=== PATIENT | male | born 1970 | race Caucasian/White ===

== ENCOUNTER 2024-04-23 09:35 | Emergency (ER) | payer SELFPAY ==
[~2024-04-23] VITALS: Ht 177.8 cm; Wt 147.4 kg
[2024-04-23 09:36] VITALS: TEMP 99.3
[2024-04-23 10:18] LABS: BASOPHILS # (AUTO) 0.1 X10'3 (0-0.2); BASOPHILS % (AUTO) 0.4 % (0-1); EOSINOPHILS # (AUTO) 2.8 X10'3 (0-0.9); EOSINOPHILS % (AUTO) 20.7 % (0-6); HEMATOCRIT 45.8 % (42.0-52.0); HEMOGLOBIN 15.4 g/dl (14.0-17.9); LYMPHOCYTES # (AUTO) 1.7 X10'3 (1.1-4.8); MEAN CORPUSCULAR HEMOGLOBIN 29.1 PG (27.0-31.0); MEAN CORPUSCULAR HGB CONC 33.7 g/dL (33.0-36.5); MEAN CORPUSCULAR VOLUME 86.2 FL (78-98); MEAN PLATELET VOLUME 7.6 FL (7.4-10.4); MONOCYTES % (AUTO) 7.3 % (2-12); NEUTROPHILS # (AUTO) 7.8 X10'3 (1.8-7.7); NEUTROPHILS % (AUTO) 58.6 % (42-75); PLATELET COUNT 289 X10'3 (140-440); RED BLOOD COUNT 5.31 X10'6 (4.70-6.10); RED CELL DISTRIBUTION WIDTH 14.9 % (11.5-14.5); WHITE BLOOD COUNT 13.3 X10'3 (4.5-11.0)
[2024-04-23 10:36] LABS: ALANINE AMINOTRANSFERASE 60 U/L (12-78); ALBUMIN 3.9 G/DL (3.4-5.0); ALKALINE PHOSPHATASE 50 IU/L (46-116); ANION GAP 11 (8-16); ASPARTATE AMINO TRANSFERASE 63 U/L (10-37); BILIRUBIN,TOTAL 0.6 MG/DL (0.1-1.0); BLOOD UREA NITROGEN 12 MG/DL (7-18); BUN/CREATININE RATIO 10.9 (10.0-20.0); CALCIUM 8.9 MG/DL (8.5-10.1); CHLORIDE 97 MMOL/L (99-107); GLUCOSE 118 MG/DL (70-104); LIPASE 56 U/L (16-77); POTASSIUM 3.2 MMOL/L (3.5-5.1); SODIUM 135 MMOL/L (135-145); TOTAL CARBON DIOXIDE 27.1 MMOL/L (24-32); TOTAL PROTEIN 7.9 G/DL (6.4-8.2); eCRCL 81 ML/MIN; eGFR 70 ML/MIN
[2024-04-23 10:57] LABS: TOTAL CELLS COUNTED 100
[2024-04-23 10:58] LABS: PLATELET ESTIMATE NORMAL; SMUDGE CELLS FEW; STOMATOCYTES FEW
[2024-04-23] MEDS ORDERED: METO-467 PO (11:01)
[2024-04-23] MEDS ORDERED: ROSU40TA PO (11:02)
[2024-04-23] MEDS ORDERED: LISI-644 PO (11:04)
[2024-04-23] MEDS ORDERED: [UNRECOGNIZED DRUG - CODE] PO (11:05)
[2024-04-23] MEDS ORDERED: DICL100T85 PO (11:06)
[2024-04-23] MEDS ORDERED: ASPI81TA52 PO (11:07)
[2024-04-23] MEDS ORDERED: CHOL100025 PO (11:08)
[2024-04-23 12:30] VITALS: RESP 16
[2024-04-23 13:31] LABS: BILIRUBIN,URINE SMALL (Neg); CLARITY,URINE CLEAR (Clear); COLOR,URINE YELLOW (Yellow); GLUCOSE, URINE NEGATIVE (Neg); KETONES,URINE TRACE mg/dl (Neg); LEUKOCYTE ESTERASE ,URINE NEGATIVE (Neg); NITRITES, URINE NEGATIVE (Neg); OCCULT BLOOD,URINE NEGATIVE (Neg); PH,URINE 5.5 (4.8-8.0); PROTEIN,URINE TRACE mg/dl (Neg); UROBILINOGEN,URINE 0.2 E.U/dL (0.2-1.0)
[2024-04-23 13:42] LABS: UA COLLECTION TYPE CLN CATCH MIDSTREAM
[2024-04-23 13:45] LABS: MUCUS STRANDS MODERATE /LPF (Neg)
[2024-04-23 13:47] LABS: RBC,URINE NONE SEEN /HPF (0-2)
[2024-04-23 13:51] LABS: SQUAMOUS EPITHELIAL CELL,UR NONE SEEN /LPF (FEW)
[2024-04-23 13:53] LABS: CELLULAR CAST 0-4 /LPF (NEGATIVE)
[2024-04-23 13:57] LABS: BACTERIA,URINE FEW /HPF (Neg)
[2024-04-23 14:33] VITALS: BP 123/75; PULSE 77; O2SAT 98
[2024-04-23] MEDS: polyethylene glycol 3350 17gm powd pack PO ONE (16:13)
[2024-04-23] MEDS ORDERED: GOLYS PO (17:33)
== END 2024-04-23 17:41 | disposition home or self-care (01) ==
LOC: ER 09:35
DX: K59.00 Constipation, unspecified (principal); Z88.8 Allergy status to other drugs, medicaments and biological substances; Z79.899 Other long term (current) drug therapy; Z79.2 Long term (current) use of antibiotics
CPT/HCPCS: 74176; 80053; 81001; 83690; 85007; 85025; 87088; 99284

== ENCOUNTER 2024-08-05 19:29 | Inpatient (IN) | payer OTHER ==
[~2024-08-05] VITALS: Ht 158.8 cm; Wt 141.0 kg
[~2024-08-05 19:29] MED LIST: ASPI81TA52 PO; CHOL100025 PO; DICL100T85 PO; GOLYS PO; METO-467 PO; ROSU40TA PO; [UNRECOGNIZED DRUG - CODE] PO
[2024-08-05 20:00] LABS: BASOPHILS % (AUTO) 0.4 % (0-1); EOSINOPHILS # (AUTO) 0.2 X10'3 (0-0.9); EOSINOPHILS % (AUTO) 1.6 % (0-6); HEMATOCRIT 38.1 % (42.0-52.0); HEMOGLOBIN 12.9 g/dl (14.0-17.9); LYMPHOCYTES # (AUTO) 0.9 X10'3 (1.1-4.8); LYMPHOCYTES % (AUTO) 9.4 % (21-51); MEAN CORPUSCULAR HEMOGLOBIN 29.7 PG (27.0-31.0); MEAN CORPUSCULAR VOLUME 87.5 FL (78-98); MEAN PLATELET VOLUME 7.6 FL (7.4-10.4); MONOCYTES # (AUTO) 0.8 X10'3 (0-0.9); MONOCYTES % (AUTO) 7.8 % (2-12); NEUTROPHILS % (AUTO) 80.8 % (42-75); PLATELET COUNT 272 X10'3 (140-440); RED BLOOD COUNT 4.35 X10'6 (4.70-6.10); RED CELL DISTRIBUTION WIDTH 13.7 % (11.5-14.5)
[2024-08-05 20:10] LABS: ALANINE AMINOTRANSFERASE 43 U/L (12-78); ALBUMIN 3.8 G/DL (3.4-5.0); ALKALINE PHOSPHATASE 47 IU/L (46-116); ANION GAP 10 (8-16); ASPARTATE AMINO TRANSFERASE 51 U/L (10-37); BILIRUBIN,TOTAL 0.6 MG/DL (0.1-1.0); BLOOD UREA NITROGEN 40 MG/DL (7-18); BUN/CREATININE RATIO 13.7 (10.0-20.0); CALCIUM 8.9 MG/DL (8.5-10.1); CHLORIDE 91 MMOL/L (99-107); CREATININE 2.93 MG/DL (0.60-1.10); GLUCOSE 138 MG/DL (70-104); LIPASE 165 U/L (16-77); SODIUM 131 MMOL/L (135-145); TOTAL CARBON DIOXIDE 30.2 MMOL/L (24-32); TOTAL PROTEIN 7.6 G/DL (6.4-8.2); eCRCL 22 ML/MIN; eGFR 23 ML/MIN
[2024-08-05 20:17] LABS: POTASSIUM 2.6 MMOL/L (3.5-5.1)
[2024-08-05 21:30] LABS: MAGNESIUM 1.2 MG/DL (1.5-2.4)
[2024-08-05] MEDS: normal saline 1000ml 1,000 ML IV ONE (22:50)
[2024-08-05 23:49] LABS: BILIRUBIN,URINE NEGATIVE (Neg); CLARITY,URINE CLEAR (Clear); COLOR,URINE YELLOW (Yellow); GLUCOSE, URINE NEGATIVE (Neg); KETONES,URINE NEGATIVE (Neg); LEUKOCYTE ESTERASE ,URINE NEGATIVE (Neg); NITRITES, URINE NEGATIVE (Neg); OCCULT BLOOD,URINE SMALL (Neg); PROTEIN,URINE TRACE mg/dl (Neg); UROBILINOGEN,URINE 0.2 E.U/dL (0.2-1.0)
[2024-08-05 23:52] LABS: UA COLLECTION TYPE CLN CATCH MIDSTREAM
[2024-08-06 00:18] LABS: MUCUS STRANDS FEW /LPF (Neg); SQUAMOUS EPITHELIAL CELL,UR FEW /LPF (FEW)
[2024-08-06 00:19] LABS: AMORPHOUS URATES 3+; BACTERIA,URINE FEW /HPF (Neg); RBC,URINE 0-2 /HPF (0-2); TRANSITIONAL EPI CELLS,URINE FEW /HPF; WBC,URINE 0-4 /HPF (0-4)
[2024-08-06] MEDS ORDERED: acetaminophen 325mg tablet PO PRN (01:00)
[2024-08-06] MEDS ORDERED: potassium Cl 40MEQ/1/2NS 520ml 520 ML IV PRN (01:00)
[2024-08-06] MEDS ORDERED: ondansetron/PF 4mg/2ml inj IV PRN (01:00)
[2024-08-06] MEDS ORDERED: magnesium hydroxide 30ml (MOM) UD suspension PO PRN (01:00)
[2024-08-06] MEDS ORDERED: magnesium sulf-water 4G/100mL 100 ML IV PRN (01:00)
[2024-08-06] MEDS ORDERED: metoclopramide 5 mg/ml inj IV PRN (01:00)
[2024-08-06] MEDS ORDERED: magnesium sulf-water 2g/50mL 50 ML IV PRN (01:00)
[2024-08-06] MEDS ORDERED: mag hydrox/Alum hydrox/simeth 30ml oral suspension PO PRN (01:00)
[2024-08-06] MEDS ORDERED: magnesium Cl slow-release 64mg tablet PO PRN (01:00)
[2024-08-06] MEDS: normal saline 1000ml 1,000 ML IV ONE (01:17)
[2024-08-06] MEDS: magnesium sulf-water 4G/100mL 100 ML IV ONE (01:18)
[2024-08-06] MEDS: potassium Cl 40MEQ/1/2NS 520ml 520 ML IV SCH (01:18)
[2024-08-06] MEDS ORDERED: LORazepam 2 mg/ml vial IV PRN (01:25)
[2024-08-06] MEDS ORDERED: haloperidol 5mg tablet PO PRN (01:25)
[2024-08-06] MEDS ORDERED: haloperidol lactate 5mg/ml inj IM PRN (01:25)
[2024-08-06] MEDS ORDERED: LORazepam 1 MG tablet PO PRN (01:25)
[2024-08-06 03:12] LABS: MAGNESIUM 2.1 MG/DL (1.5-2.4); PHOSPHORUS 3.2 MG/DL (2.3-4.5)
[2024-08-06 06:00] VITALS: BP 114/52; PULSE 65; RESP 16; TEMP 97.9; O2SAT 96
[2024-08-06] MEDS: normal saline 1000ml 1,000 ML IV SCH (06:16)
[2024-08-06 07:55] VITALS: RESP 18
[2024-08-06] MEDS: multivitamins, therapeutics tablet PO SCH (08:02)
[2024-08-06] MEDS: thiamine 100mg/ml 2ml inj. IV SCH (08:04)
[2024-08-06] MEDS: heparin, porcine 5000 units/ml vial SQ SCH (08:06)
[2024-08-06] MEDS: K and/or MAG REPLACEMENT MC SCH (08:59)
[2024-08-06 09:07] LABS: BASOPHILS % (AUTO) 0.3 % (0-1); EOSINOPHILS # (AUTO) 0.2 X10'3 (0-0.9); HEMATOCRIT 35.3 % (42.0-52.0); HEMOGLOBIN 12.1 g/dl (14.0-17.9); LYMPHOCYTES % (AUTO) 11.6 % (21-51); MEAN CORPUSCULAR HEMOGLOBIN 29.7 PG (27.0-31.0); MEAN CORPUSCULAR HGB CONC 34.2 g/dL (33.0-36.5); MEAN CORPUSCULAR VOLUME 86.7 FL (78-98); MEAN PLATELET VOLUME 7.8 FL (7.4-10.4); MONOCYTES # (AUTO) 0.6 X10'3 (0-0.9); MONOCYTES % (AUTO) 7.4 % (2-12); NEUTROPHILS # (AUTO) 6.6 X10'3 (1.8-7.7); NEUTROPHILS % (AUTO) 78.7 % (42-75); PLATELET COUNT 258 X10'3 (140-440); RED BLOOD COUNT 4.07 X10'6 (4.70-6.10); RED CELL DISTRIBUTION WIDTH 13.2 % (11.5-14.5); WHITE BLOOD COUNT 8.4 X10'3 (4.5-11.0)
[2024-08-06 09:22] LABS: ALANINE AMINOTRANSFERASE 44 U/L (12-78); ALBUMIN 3.3 G/DL (3.4-5.0); ALBUMIN/GLOBULIN RATIO 0.9 (1.1-1.5); ALKALINE PHOSPHATASE 43 IU/L (46-116); ANION GAP 10 (8-16); ASPARTATE AMINO TRANSFERASE 41 U/L (10-37); BILIRUBIN,TOTAL 0.5 MG/DL (0.1-1.0); BLOOD UREA NITROGEN 34 MG/DL (7-18); CALCIUM 8.4 MG/DL (8.5-10.1); CHLORIDE 98 MMOL/L (99-107); CREATININE 2.26 MG/DL (0.60-1.10); GLUCOSE 153 MG/DL (70-104); SODIUM 136 MMOL/L (135-145); TOTAL CARBON DIOXIDE 27.8 MMOL/L (24-32); TOTAL PROTEIN 6.8 G/DL (6.4-8.2); eCRCL 29 ML/MIN; eGFR 30 ML/MIN
[2024-08-06 09:33] LABS: POTASSIUM 2.7 MMOL/L (3.5-5.1)
[2024-08-06] MEDS: potassium Cl 20 mEq SR tablet PO PRN (09:57)
[2024-08-06 18:00] VITALS: BP 115/53; PULSE 73; RESP 18; TEMP 97.7; O2SAT 96
[2024-08-06 22:00] VITALS: BP 11/53; PULSE 68; RESP 16; TEMP 98.3; O2SAT 97
[2024-08-07] VITALS (8 sets, daily range): BP systolic 116–132; BP diastolic 65–99; PULSE 56–64; RESP 14–20; TEMP 96.9–98.1; O2SAT 94–97
[2024-08-07] MEDS: potassium Cl 20 mEq SR tablet PO PRN (01:08)
[2024-08-07 07:16] LABS: BASOPHILS % (AUTO) 0.5 % (0-1); EOSINOPHILS # (AUTO) 0.3 X10'3 (0-0.9); EOSINOPHILS % (AUTO) 4.3 % (0-6); HEMATOCRIT 33.6 % (42.0-52.0); HEMOGLOBIN 11.3 g/dl (14.0-17.9); LYMPHOCYTES # (AUTO) 1.2 X10'3 (1.1-4.8); LYMPHOCYTES % (AUTO) 19.8 % (21-51); MEAN CORPUSCULAR HEMOGLOBIN 30.2 PG (27.0-31.0); MEAN CORPUSCULAR HGB CONC 33.7 g/dL (33.0-36.5); MEAN CORPUSCULAR VOLUME 89.6 FL (78-98); MEAN PLATELET VOLUME 7.9 FL (7.4-10.4); MONOCYTES # (AUTO) 0.7 X10'3 (0-0.9); MONOCYTES % (AUTO) 10.9 % (2-12); NEUTROPHILS # (AUTO) 3.9 X10'3 (1.8-7.7); NEUTROPHILS % (AUTO) 64.5 % (42-75); PLATELET COUNT 243 X10'3 (140-440); RED BLOOD COUNT 3.75 X10'6 (4.70-6.10); RED CELL DISTRIBUTION WIDTH 13.5 % (11.5-14.5)
[2024-08-07] MEDS: metoprolol tartrate 50mg tablet PO SCH (07:33)
[2024-08-07] MEDS: atorvastatin 20mg tablet PO SCH (07:38)
[2024-08-07 07:42] LABS: ALBUMIN 2.8 G/DL (3.4-5.0); ANION GAP 7 (8-16); BLOOD UREA NITROGEN 20 MG/DL (7-18); BUN/CREATININE RATIO 11.7 (10.0-20.0); CALCIUM 7.9 MG/DL (8.5-10.1); CHLORIDE 104 MMOL/L (99-107); CREATININE 1.71 MG/DL (0.60-1.10); GLUCOSE 102 MG/DL (70-104); PHOSPHORUS 1.9 MG/DL (2.3-4.5); POTASSIUM 3.3 MMOL/L (3.5-5.1); SODIUM 139 MMOL/L (135-145); TOTAL CARBON DIOXIDE 27.8 MMOL/L (24-32); eCRCL 39 ML/MIN; eGFR 42 ML/MIN
[2024-08-07 15:28] LABS: LIPASE 58 U/L (16-77)
[2024-08-08 06:00] VITALS: BP 128/75; PULSE 60; RESP 17; TEMP 98.1; O2SAT 98
[2024-08-08 07:03] LABS: BASOPHILS % (AUTO) 0.4 % (0-1); EOSINOPHILS # (AUTO) 0.3 X10'3 (0-0.9); EOSINOPHILS % (AUTO) 4.7 % (0-6); HEMATOCRIT 33.9 % (42.0-52.0); HEMOGLOBIN 11.3 g/dl (14.0-17.9); LYMPHOCYTES # (AUTO) 1.2 X10'3 (1.1-4.8); LYMPHOCYTES % (AUTO) 19.4 % (21-51); MEAN CORPUSCULAR HEMOGLOBIN 29.9 PG (27.0-31.0); MEAN CORPUSCULAR HGB CONC 33.4 g/dL (33.0-36.5); MEAN CORPUSCULAR VOLUME 89.3 FL (78-98); MEAN PLATELET VOLUME 7.8 FL (7.4-10.4); MONOCYTES # (AUTO) 0.6 X10'3 (0-0.9); MONOCYTES % (AUTO) 9.3 % (2-12); NEUTROPHILS # (AUTO) 4.2 X10'3 (1.8-7.7); NEUTROPHILS % (AUTO) 66.2 % (42-75); PLATELET COUNT 239 X10'3 (140-440); RED CELL DISTRIBUTION WIDTH 13.7 % (11.5-14.5); WHITE BLOOD COUNT 6.3 X10'3 (4.5-11.0)
[2024-08-08 07:13] LABS: ALBUMIN 2.9 G/DL (3.4-5.0); ANION GAP 9 (8-16); BLOOD UREA NITROGEN 10 MG/DL (7-18); BUN/CREATININE RATIO 7.3 (10.0-20.0); CHLORIDE 107 MMOL/L (99-107); CREATININE 1.37 MG/DL (0.60-1.10); GLUCOSE 104 MG/DL (70-104); MAGNESIUM 1.8 MG/DL (1.5-2.4); PHOSPHORUS 1.9 MG/DL (2.3-4.5); POTASSIUM 3.4 MMOL/L (3.5-5.1); SODIUM 140 MMOL/L (135-145); TOTAL CARBON DIOXIDE 24.4 MMOL/L (24-32); eCRCL 49 ML/MIN; eGFR 54 ML/MIN
[2024-08-08 08:00] VITALS: RESP 17; O2SAT 98
[2024-08-08 10:00] VITALS: BP_SYST 122; BP_SYST 128; BP_DIAS 62; BP_DIAS 75; PULSE 57; PULSE 60; RESP 16; RESP 17; TEMP 97.3; TEMP 98.1; O2SAT 96; O2SAT 98
[2024-08-08] MEDS ORDERED: POTA-207 PO (12:14)
[2024-08-09] MEDS ORDERED: thiamine 100mg tablet PO SCH (08:00)
[2024-08-10] MEDS ORDERED: folic acid 1mg tablet PO SCH (08:00)
== END 2024-08-08 14:15 | disposition home or self-care (01) | DRG 438 ==
LOC: ER 19:29 → ED HOLD 08-06 01:03 → ORTHO 4S 08-06 03:10
PROVIDERS: ADMIT Internal Medicine Pulmonary Disease; ATTEND Internal Medicine
DX: K85.20 Alcohol induced acute pancreatitis without necrosis or infection (principal); N17.0 Acute kidney failure with tubular necrosis; K56.7 Ileus, unspecified; Z68.43 Body mass index [BMI] 50.0-59.9, adult; E66.01 Morbid (severe) obesity due to excess calories; K59.09 Other constipation; E86.0 Dehydration; E87.6 Hypokalemia; E78.5 Hyperlipidemia, unspecified; I10 Essential (primary) hypertension; F10.10 Alcohol abuse, uncomplicated; G47.33 Obstructive sleep apnea (adult) (pediatric); Z88.5 Allergy status to narcotic agent; Z79.82 Long term (current) use of aspirin; Z79.899 Other long term (current) drug therapy
CPT/HCPCS: 36415; 74176; 80048; 80053; 81001; 83690; 83735; 84100; 84132; 84145; 85025; 87081; 94760; 96360; 99285; A6258; G0378; J1644; J3411; J3475; J3480; J7030

== ENCOUNTER 2025-03-16 07:36 | Day surgery (SDC) | payer OTHER ==
--- NOTE | 2025-03-10 15:00 | ELECTROCARDIOGRAPH REPORT ---
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 LESLIE Hoover Measurements Intervals [place] Rate: 79 P: 61 HI: 160 QRS: 61 QRSD: 103 T: 49 QT: 388 QTc: 445 Interpretive Statements Sinus rhythm Electronically Signed On 03-10-2025 17:54:[address] LESLIE Hoover Please click the below link to view image of tracing.
[2025-03-10 15:05] LABS: BASOPHILS # (AUTO) 0.1 X10'3 (0-0.2); BASOPHILS % (AUTO) 0.6 % (0-1); EOSINOPHILS # (AUTO) 0.3 X10'3 (0-0.9); LYMPHOCYTES # (AUTO) 1.7 X10'3 (1.1-4.8); MEAN CORPUSCULAR HEMOGLOBIN 27.7 PG (27.0-31.0); MEAN CORPUSCULAR HGB CONC 33.8 g/dL (33.0-36.5); MEAN PLATELET VOLUME 7.4 FL (7.4-10.4); MONOCYTES % (AUTO) 9.8 % (2-12); NEUTROPHILS # (AUTO) 7.5 X10'3 (1.8-7.7); NEUTROPHILS % (AUTO) 70.6 % (42-75); PRE OP HEMATOCRIT 41.8 % (42.0-52.0); PRE OP HEMOGLOBIN 14.1 g/dL (14.0-17.9); PRE OP PLATELET COUNT 338 X10'3 (140-440); PRE OP WHITE BLOOD COUNT 10.6 10'3 (4.8-10.8); RED CELL DISTRIBUTION WIDTH 15.7 % (11.5-14.5)
[2025-03-10 15:17] LABS: PRE OP INR 1.1 INR; PRE OP PROTIME 10.9 SECONDS (9.0-12.0)
[2025-03-10 15:23] LABS: ALBUMIN 3.7 G/DL (3.4-5.0); ALKALINE PHOSPHATASE 56 IU/L (46-116); BLOOD UREA NITROGEN 11 MG/DL (7-18); BUN/CREATININE RATIO 13.3 (10.0-20.0); CALCIUM 9.3 MG/DL (8.5-10.1); CHLORIDE 99 MMOL/L (99-107); CREATININE 0.83 MG/DL (0.60-1.10); PRE OP ALT 27 U/L (30-65); PRE OP ANION GAP 12 (8-16); PRE OP AST 24 U/L (10-37); PRE OP BILIRUB, TOTAL 0.3 MG/DL (0.0-1.0); PRE OP GLUCOSE 101 MG/DL (70-104); PRE OP SODIUM 141 MMOL/L (135-145); TOTAL CARBON DIOXIDE 30.1 MMOL/L (24-32); TOTAL PROTEIN 7.3 G/DL (6.4-8.2); eGFR > 90 ML/MIN
[2025-03-10 15:28] LABS: PRE OP POTASSIUM 3.3 MMOL/L (3.4-5.1)
--- NOTE | 2025-03-10 15:39 | RADIOLOGY REPORT ---
DI CHEST,TWO VIEWS CLINICAL HISTORY: PREOP/pain COMPARISON: None TECHNIQUE: Frontal and lateral view of the chest was obtained FINDINGS: Lines and Tubes: None Lungs: No focal consolidation. Pleura: No effusion. No pneumothorax. Cardiomediastinal contours: Unremarkable Bones: No acute osseous abnormality. IMPRESSION: No acute cardiopulmonary disease.
[2025-03-16] VITALS (20 sets, daily range): BP systolic 97–144; BP diastolic 61–90; PULSE 65–95; RESP 13–21; TEMP 97.7–98.5; O2SAT 92–98
[~2025-03-16] VITALS: Ht 177.8 cm; Wt 144.3 kg
[2025-03-16] MEDS: DOCUMENT DATE & TIME OF BETA-BLOCKER PO ONE (05:30)
[2025-03-16] MEDS: CEFAZOLIN 3GM/DEXTROSE 150mL 150 ML IV ONE (05:30)
[~2025-03-16 07:36] MED LIST changes: +DICL-211 PO; -DICL100T85 PO; -GOLYS PO; +LISI1TAB53 PO; +METO-384 PO; -METO-467 PO; +POTA-207 PO; +SENN-294 PO; +TIRZ5PEN SQ; +TRAZ-251 PO; +TRIA15CR61 TOP; -[UNRECOGNIZED DRUG - CODE] PO
[2025-03-16] MEDS: famotidine 20mg tablet PO ONE (09:23)
[2025-03-16] MEDS: ringers solution, lacted 1,000 ML IV SCH ×2 (09:24→14:55)
[2025-03-16] MEDS ORDERED: vancomycin 1,000mg inj ONE (12:44)
[2025-03-16] MEDS ORDERED: midazolam 1 mg/ML 2ml injection ONE (13:00)
[2025-03-16] MEDS ORDERED: propofol inj 20 ML IV ONE (13:00)
[2025-03-16] MEDS ORDERED: fentaNYL/PF 50MCG/1 ML 2ML syringe ONE (13:00)
[2025-03-16] MEDS ORDERED: rocuronium 10mg/ml inj IV ONE (13:02)
[2025-03-16] MEDS ORDERED: ROPIVAcaine 0.5% (5mg/ml) 30ml vial ONE (13:02)
[2025-03-16] MEDS ORDERED: sevoflurane 250ml liquid IH ONE (13:03)
[2025-03-16] MEDS ORDERED: tranexamic acid 100mg/ml inj. ONE (13:39)
[2025-03-16] MEDS ORDERED: ceFAZolin 1000mg inj ONE (14:47)
[2025-03-16] MEDS ORDERED: labetalol 20mg/4ml (5mg/ml) syringe IV PRN ×2 (14:55→15:05)
[2025-03-16] MEDS ORDERED: morphine 2 MG/ML inj. syringe IV PRN ×2 (14:55→15:05)
[2025-03-16] MEDS ORDERED: morphine 4 MG/ML inj SYRINge IV PRN ×2 (14:55→15:05)
[2025-03-16] MEDS ORDERED: ondansetron/PF 4mg/2ml inj IV PRN ×3 (14:55→17:15)
[2025-03-16] MEDS ORDERED: HYDROmorphone/PF 0.2 MG/ML SYRINGE IV PRN ×4 (14:55→15:05)
[2025-03-16] MEDS ORDERED: meperidine/PF 25mg/ml syringe IV PRN ×2 (14:55→15:05)
[2025-03-16] MEDS ORDERED: ringers solution, lacted 1,000 ML IV SCH (15:05)
[2025-03-16] MEDS ORDERED: acetaminophen 325mg tablet PO PRN (17:15)
[2025-03-16] MEDS ORDERED: HYDROcodone/acetaminophen 5mg/325mg tablet PO PRN ×2 (17:15)
[2025-03-16] MEDS ORDERED: naloxone 0.4 mg/ml inj IV PRN (17:15)
[2025-03-16] MEDS ORDERED: magnesium hydroxide 30ml (MOM) UD suspension PO PRN (17:15)
[2025-03-16] MEDS ORDERED: diphenhydrAMINE 25mg capsule PO PRN (17:15)
[2025-03-16] MEDS ORDERED: bisacodyl 10mg suppository rectal RC PRN (17:15)
--- NOTE | 2025-03-16 18:05 | OPERATIVE REPORT ---
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 A small amount of tendon still remained attached proximally. Tendon itself, however, was very atrophic. Only a small amount of tendon stump remained of viable tissue. Thus a tendon allograft was performed in a Pulvertaft weave fashion. An onlay biceps tenodesis was performed under the pectoralis major tendon. Complications None Prosthetics\Implants used: Arthrex unicortical suture buttons were utilized x2. One was a standard biceps tenodesis button. The other was a tension tight biceps tenodesis button. Estimated Blood Loss: 150 cc Specimen Removed: None Description of Procedure: Patient is brought to the operating. Placed in a supine position. Preoperative antibiotics of 3 g of Ancef were given. 1 g of TXA. General plus regional anesthesia was performed. Patient was then positioned in a slight beach chair position. Bony prominences were well padded especially around the buttocks where the patient's weight was resting. Bilateral lower extremity SCDs were placed. The left upper extremity was prepped and draped in the usual sterile fashion. A time-out procedure was performed as per routine identifying the patient, site to be operated on, and procedure to be performed. I confirmed that a left upper extremity regional block was performed. Dr. Raffaele Hernandez psych assistant on this case. This was a very complicated case. Therefore, assistance was required. Doctor Hernandez assistance was required for retraction. This allowed me visualization of important structures. Also, a andry y complicated grafting technique was utilized and again doctor Hernandez experience with this assisted with this portion of the surgery. At the beginning of the case I marked out a deltopectoral incision that then converted into the anterior approach to the proximal humerus. I started distal to the coracoid, just slightly above the pectoralis major muscle belly at its most distal aspect. Sharp dissection was carried out through skin. I extended the incision almost 2/[address] down the humerus. Subcutaneous tissue was divided until I came down to muscle fascia. I carefully bluntly dissected in this region. I could identify the lower portion of the pectoralis major. I could identify the short head of the biceps. I could palpate the long head of the biceps within the bicipital groove. I could identify the the deltoid and could palpate the deltoid insertion. Patient is heavy with a BMI of 45.6 so the dissection was more difficult than normal. This led to increased dissection time. Once I could identify everything properly, I passed a right angle clamp under the long head of the biceps. I tugged on it and it would not free up from proximally. Based off of the preoperative MRI, there was a possibility that a thin portion of the tendon might still be intact so I decided to extend my incision proximally. I extended this part of the way up a standard deltopectoral incision. I identified the deltopectoral interval and dissected that open and placed a retractor under the deltoid. I could now identify the superior aspect of the pectoralis major insertion. I could see the entire pectoralis muscle and I could identify its attachment to the humerus. I could palpate long head bicep tendon still within the bicipital groove proximal to the pectoralis major so I opened the bicipital groove. There was a small amount of thin tendon left. I dissected up as far proximally as I could and released the tendon from the bicipital groove. The tendon that remained was very deficient. Even though I had released the tendon, I still could not pull it out from the distal portion of the wound. I bluntly dissected under the pectoralis major tendon insertion to free of the biceps and ultimately, I was able to pull the biceps all the way out into the distal wound. Inspection of the tendon showed a very thin proximal portion of the tendon. You could feel 1 cm above the myotendinous junction, that the tendon got slightly thicker in that region but the remaining portion of the tendon was quite deficient. Because of this, I decided I would have to proceed with a graft. Before doing so, I wanted to free up the muscle belly more. While holding the tendon, I carefully dissected around the retracted biceps muscle belly. I could identify branches of the musculocutaneous nerve entering the deep portion of the biceps and I preserved those. Other than that, I dissected the muscle as much as I could medially, laterally, and anteriorly. Once I completed mobilization, I could get the myotendinous junction just up to the inferior border of the pectoralis major tendon. I felt this was adequate. I estimated that I would need a graft that would re-create approximately 2-3 cm of tendon so I had a tibialis anterior allograft thawed. This was 10 mm x 300 mm in size. This was thawed in Ancef solution. Once it was ready, I did a standard Pulvertaft weave making four passes through the muscle belly at diffe rent angles and then I sewed the tendon to itself in multiple locations. I also sewed the allograft tendon to as much of the [place] tendon stump as possible. The construct was very stable. Pulling on the tendon moved the entire patient's arm. Because I left extra allograft proximally, I measured about 2-1/2 cm and cut the rest of the graft tendon such that I only had 2-1/2 cm proximal to the muscle myotendinous junction. I then used an Arthrex FiberLoop suture and did a whip stitched from the myotendinous junction extending about 2-1/2 cm proximally. I then loaded a unicortical biceps button onto the free ends of the stitch. Pulling the pectoralis major superiorly, I tried to make my 1st biceps anchor as proximally as I could. I identified the bicipital groove. I used a curette to curette the bone and providing a good bleeding surface to allow for tendon healing. I then drilled a unicortical hole within the bicipital groove. Once I had established this, I irrigated it thoroughly. I then inserted the unicortical button and flipped it against the anterior wall of the intramedullary canal of the humerus. I then tensioned the sutures until the biceps pulled all the way down to bone. I then passed one suture limb through the biceps grafted tendon and then tied that to secure the tendon in that location. Fluoroscopy was used. I was happy with the button position and I confirmed that it was flipped onto the cortex appropriately. Because this was a single point of fixation, I felt an additional point of fixation would be useful to allow more surface area for tendon healing. I decided to use an Arthrex tension tight proximal biceps suture button. I measured approximately 1-1/2-2 cm distally from my 1st anchor site. This was to prevent stress risers. I then drilled a unicortical hole within the bicipital groove again. This was within the same area that I had curetted to provide a bleeding surface. This particular implant uses a luggage tag type fixation so the luggage tag stitch was placed around the grafted biceps tendon approximately 2 cm distal to the 1st attachment site. This was almost to the myotendinous junction. I made two additional passes through the tendon distal to the luggage tag for additional fixation. I then passed the sutures through the implant and then passed the implant in standard fashion. I flipped it against the anterior wall of the humerus and tension the biceps down to this anchor. Thus I had two fixation points for my graft. The tendon in between the two was laying down against the humerus which would potentially provide a larger surface area for healing. When I inspected my tension on the biceps, I had pulled the biceps muscle belly to a point where the myotendinous junction was at the inferior edge of the pectoralis major muscle belly and tendon. When ranging the elbow, putting the elbow into full extension put a fair amount of tension on the biceps muscle so I felt I had restored a reasonable amount of tension to the biceps. I feel going more proximal would have put excessive tension on the biceps going into extension. I felt this was a reasonable reconstruction for a biceps that was retracted in this manner for over a year. My dissection and ability to free up the muscle belly was also limited because of the insertion of the musculocutaneous nerve. Fluoroscopy images were taken and both buttons were in good position. Again I assessed the reconstruction. I felt the reconstruction was adequate with the myotendinous junction at the inferior edge of the pectoralis major muscle. So at this point, I irrigated the area thoroughly with IrriSept. I inspected the repair. I could easily identify the short head of the biceps which was intact. I could easily see my fixation points if I pulled up on the pectoralis major mus viktoriya and I felt those fixation points were solid. Again patient had full elbow motion. The muscle belly and graft was under reasonable tension in maximum elbow extension. I pulse lavage irrigated the area with 3 L of saline. Adequate hemostasis was obtained. 1 g of vancomycin powder was placed adjacent to the reconstruction. I closed the deltopectoral interval with #2 FiberWire suture. Deep layers were closed with 0 Vicryl suture, subcutaneous layers were closed with 2-0 Vicryl suture and skin was closed with maurice. Final sponge and needle counts were correct. Sterile dressings were applied and arm was protected in a sling. Patient was thereafter recovered without complications and sent to recovery in good condition. This was a very complicated case. The literature shows very few of these types of surgeries are documented. Large series of patient outcomes are not avail able. Patient's injury was over a year old. Overcoming scar tissue and safely protecting nerves made the surgery much more complicated. Trying to tension the muscle properly also was complicated. Overall, I would estimate increased difficulty and time based off of the above factors as well as the patient's BMI of 45.6. I would estimate that this case required 2x the normal time, effort, and skill expecially taking into account patient factors. Counts repoted as correct: Yes X-Ray findings: Per PAT Cond no x-ray LUIS RIVERA MD Mar 16, 2025 18:05
[2025-03-16] MEDS: TIRZEPATIDE 5 MG SQ SCH (18:30)
[2025-03-16] MEDS: potassium cl 20mEq in 1/2 NS 1,000 ML IV SCH (19:24)
[2025-03-16] MEDS: sennosides/docusate sodium tablet PO SCH (22:27)
[2025-03-16] MEDS: ceFAZolin 2gm in dextrose, iso 50 ML IV SCH (22:27)
[2025-03-16] MEDS: traZODone 50mg tablet PO SCH (22:27)
[2025-03-16] MEDS: triamcinolone acetonide 0.5% cream 15gm TP SCH (22:28)
[2025-03-17 03:00] VITALS: BP 123/81; PULSE 90; RESP 18; TEMP 97.9; O2SAT 95
[2025-03-17 04:20] LABS: BASOPHILS % (AUTO) 0.2 % (0-1); EOSINOPHILS % (AUTO) 0.1 % (0-6); HEMATOCRIT 37.9 % (42.0-52.0); HEMOGLOBIN 12.5 g/dl (14.0-17.9); LYMPHOCYTES # (AUTO) 0.7 X10'3 (1.1-4.8); MEAN CORPUSCULAR HEMOGLOBIN 27.4 PG (27.0-31.0); MEAN CORPUSCULAR HGB CONC 32.9 g/dL (33.0-36.5); MEAN CORPUSCULAR VOLUME 83.4 FL (78-98); MEAN PLATELET VOLUME 7.5 FL (7.4-10.4); MONOCYTES # (AUTO) 1.1 X10'3 (0-0.9); MONOCYTES % (AUTO) 7.9 % (2-12); NEUTROPHILS % (AUTO) 86.8 % (42-75); PLATELET COUNT 299 X10'3 (140-440); RED BLOOD COUNT 4.55 X10'6 (4.70-6.10); RED CELL DISTRIBUTION WIDTH 15.5 % (11.5-14.5); WHITE BLOOD COUNT 13.8 X10'3 (4.5-11.0)
[2025-03-17 04:39] LABS: ALANINE AMINOTRANSFERASE 27 U/L (12-78); ALBUMIN 3.1 G/DL (3.4-5.0); ALBUMIN/GLOBULIN RATIO 0.9 (1.1-1.5); ALKALINE PHOSPHATASE 51 IU/L (46-116); ANION GAP 9 (8-16); ASPARTATE AMINO TRANSFERASE 26 U/L (10-37); BILIRUBIN,TOTAL 0.4 MG/DL (0.1-1.0); BLOOD UREA NITROGEN 15 MG/DL (7-18); BUN/CREATININE RATIO 16.1 (10.0-20.0); CALCIUM 8.2 MG/DL (8.5-10.1); CHLORIDE 99 MMOL/L (99-107); CREATININE 0.93 MG/DL (0.60-1.10); GLUCOSE 123 MG/DL (70-104); POTASSIUM 3.3 MMOL/L (3.5-5.1); SODIUM 136 MMOL/L (135-145); TOTAL CARBON DIOXIDE 27.6 MMOL/L (24-32); TOTAL PROTEIN 6.5 G/DL (6.4-8.2); eCRCL 93 ML/MIN; eGFR 84 ML/MIN
[2025-03-17] MEDS: potassium Cl 20 mEq SR tablet PO STA (05:52)
[2025-03-17 06:00] VITALS: BP 128/70; PULSE 78; RESP 18; TEMP 97.9; O2SAT 96
--- NOTE | 2025-03-17 07:06 | PROGRESS NOTE ---
Progress Note Orthopedic Ortho Post Op Day #: 1 Follow Up Progress Note Postoperative day 1. Status post left proximal biceps tendon reconstruction with allograft Central Line/PICC still needed: N\A North Catheter still needed?: N\A Subjective Patient's block is starting to wear off. He still does not have substantial pain. Nurse tells me that he contacted the overnight resident for a potassium of 3.3 and was given orders for supplementation. Objective Vital Signs Date Time Temp Pulse Resp B/P (MAP) Pulse Ox O2 Delivery O2 Flow Rate FiO2 03/17/25 06:00 97.9 78 18 128/70 (89) 96 Bi-pap/CPAP 03/16/25 19:15 1.0 Result Diagram: 03/17/25 0352 03/17/25 0352 Alert and Oreinted x4, Appropriate, Vital signs are stable, In no acute distress, Dressing clean and dry Objective Patient is alert and oriented. No distress. Examination of the left upper extremity shows dressing intact. There was just a very small amount of strike through at the more distal aspect of the dressing. He has decreased sensation in the axillary nerve distribution. He has decreased sensation throughout the upper extremity. While he has some sensation in the hand, he states that it does not normal and feels like his hand is waking up from being numb. He notices gradual increase in sensation as time goes on. He has a 2+ radial pulse. His median, radial, and ulnar nerve motor functions are intact. Sling is in place. Lab Results comments Postoperative labs were reviewed. Labs were within acceptable limits given postoperative day 1. Status. As noted previously, overnight nurse received supplementation orders for the potassium of 3.3 from the medicine resident Other Results No postoperative x-rays, however, intraoperative fluoroscopy showed good button position on the proximal humerus Problem/Assessment/Plan Assessment\Plan: Doing Well, Anticipate disch to home Patient is doing well. Recovering as expected. His vital signs are stable. His labs were acceptable. He received supplementation for the potassium per the overnight medicine resident. He received his postoperative antibiotics. Currently, his pain is reasonably controlled. As long as patient clears therapy, which he likely will, he should be discharged home later today with the following instructions: 1. Left shoulder sling at all times 2. I advised the patient for no left shoulder or elbow motion at this point. He must however move his fingers and hand 3. Strict nonweightbearing left upper extremity 4. In two days, he may remove the dressing. I advised to continue to change to dry dressings on a daily basis. 5. Do not get the wound wet until maurice are removed 6. Patient may resume his normal medications 7. I advised the patient to take an aspirin 325 mg one tablet daily as DVT prophylaxis unless he is already on blood thinners. 8. Patient should delay physical therapy until two weeks postop 9. Patient is to have follow up with Dr. Rivera in two weeks A printed instruction sheet will be given to the patient at discharge. It has the above instructions with some increased detail. Patient has Dr. Rivera's cell number should there be any questions after discharge. LUIS RIVERA MD Mar 17, 2025 07:05
--- NOTE | 2025-03-17 07:09 | DISCHARGE SUMMARY ---
Discharge Summary Providers to CC ~ Discharge Summary Admission Diagnosis: Chronic L proximal bicep rupture Hospital Course DATE OF ADMISSION: 03/16/2025 DATE OF DISCHARGE: 03/17/2025 Discharge Diagnosis\Comment: Chronic left proximal long head biceps rupture Operations\Procedures: On 03/16/2025, patient underwent a left proximal biceps tendon reconstruction with human allograft tissue. Consultants: None Complications: None Condition on DC: Stable Discharge Summary: Patient underwent surgery on 03/16/2025 for a left proximal biceps tendon reconstruction with human allograft tissue. Surgery was complicated but proceeded without significant issues or complications. Patient was admitted for overnight observation due to his BMI and history of sleep apnea. No overnight issues except the overnight nurse called the hospital resident for a potassium of 3.3 and nurse reports that he was given orders for supplementation. Otherwise, patient did not have any pain. His block is wearing off currently. He received his postoperative antibiotics. Patient is to be seen by therapy just to be cleared for safe discharge. Hand and finger motion only. No shoulder elbow motion yet. Patient should be discharged home later today with the following instructions: 1. Left shoulder sling at all times 2. I advised the patient for no left shoulder or elbow motion at this point. He must however move his fingers and hand 3. Strict nonweightbearing left upper extremity 4. In two days, he may remove the dressing. I advised to continue to change to dry dressings on a daily basis. 5. Do not get the wound wet until maurice are removed 6. Patient may resume his normal medications 7. I advised the patient to take an aspirin 325 mg one tablet daily as DVT prophylaxis unless he is already on blood thinners. 8. Patient should delay physical therapy until two weeks postop 9. Patient is to have follow up with Dr. Rivera in two weeks A printed instruction sheet will be given to the patient at discharge. It has the above instructions with some increased detail. Patient has Dr. Rivera's cell number should there be any questions after discharge. *Problems/Diagnosis: (1) Rupture of left long head biceps tendon Status: Resolved Total Time Spent on D/C: Up to 30 Minutes Problem Qualifiers (1) Rupture of left long head biceps tendon: Qualified Codes: S46.112S - Strain of muscle, fascia and tendon of long head of biceps, left arm, sequela LUIS RIVERA MD Mar 17, 2025 07:09
[2025-03-17] MEDS: lisinopril 20mg tablet PO SCH (07:26)
[2025-03-17] MEDS: aspirin 325mg tablet PO SCH (07:26)
[2025-03-17] MEDS: cholecalciferol (vitamin D3) 1,000 unit (25mcg) tablet PO SCH (07:27)
[2025-03-17] MEDS: atorvastatin 20mg tablet PO SCH (07:27)
[2025-03-17] MEDS: metoprolol succinate 25mg (24-HOUR) SR. Tablet PO SCH (07:27)
[2025-03-17] MEDS: HYDROchlorothiazide 25mg tablet PO SCH (07:28)
[2025-03-17] MEDS: potassium Cl 20 mEq SR tablet PO SCH (07:28)
[2025-03-17] MEDS: Diclofenac Sodium 75 MG PO SCH (08:00)
[2025-03-17] MEDS ORDERED: aspirin 81mg, enteric-coated 1 TAB TABLET.DR PO SCH (08:00)
[2025-03-17 10:00] VITALS: BP 110/61; PULSE 63; RESP 17; TEMP 97.8; O2SAT 94
== END 2025-03-17 11:43 | disposition home or self-care (01) ==
LOC: PAS 07:36 → ORTHO 4S 19:06
PROVIDERS: ADMIT Specialist; ATTEND Specialist
DX: M75.112 Incomplete rotator cuff tear or rupture of left shoulder, not specified as traumatic (principal); E78.5 Hyperlipidemia, unspecified; I10 Essential (primary) hypertension; E11.9 Type 2 diabetes mellitus without complications; M19.90 Unspecified osteoarthritis, unspecified site; G47.30 Sleep apnea, unspecified; E66.01 Morbid (severe) obesity due to excess calories; R79.1 Abnormal coagulation profile; Z68.42 Body mass index [BMI] 45.0-49.9, adult; Z79.899 Other long term (current) drug therapy; Z98.890 Other specified postprocedural states
CPT/HCPCS: 23430; 36415; 71046; 73060; 76000; 80053; 82948; 85025; 85610; 85730; 87081; 93005; 96365; 96366; 97161; 97535; A6222; C1713; G0378; J0690; J0735; J1100; J2250; J2405; J2704; J2795; J3010; J3370; J3480; J3490; J7030; J7120; Z7506; Z7508; Z7512; A4215; A4615; A4618; A6258; A6449; A7000